=== PATIENT | male | born 1960 | race Two or more races ===

== ENCOUNTER 2023-01-28 02:37 | Emergency (ER) | payer MEDICARE, OTHER ==
[~2023-01-28] VITALS: Ht 177.8 cm; Wt 80.7 kg
[2023-01-28 03:15] VITALS: BP 137/77; TEMP 98.2; O2SAT 99
[2023-01-28] MEDS ORDERED: PRED50TA PO (03:23)
[2023-01-28] MEDS ORDERED: HYDR-3972 PO (03:23)
[2023-01-28] MEDS ORDERED: IBUP-1957 PO (03:23)
[2023-01-28] MEDS ORDERED: predniSONE 20 MG TABLET ONE (03:26)
[2023-01-28] MEDS ORDERED: IBUPROFEN 400 MG TABLET ONE (03:26)
[2023-01-28] MEDS ORDERED: predniSONE 50 MG TABLET PO ONE (03:30)
[2023-01-28] MEDS ORDERED: IBUPROFEN 400 MG TABLET PO ONE (03:30)
[2023-01-30] MEDS ORDERED: LIDOCAINE 0.5% HCL 50 ML VIAL ONE (18:44)
== END 2023-01-28 03:32 | disposition home or self-care (01) ==
LOC: ER 02:47
DX: M54.42 Lumbago with sciatica, left side (principal); Z88.8 Allergy status to other drugs, medicaments and biological substances; Z60.2 Problems related to living alone
CPT/HCPCS: 99283; J7512; J3490